=== PATIENT | female | born 1945 | race Caucasian/White ===

== ENCOUNTER 2019-06-09 00:25 | Emergency (ER) | payer MEDICARE ==
[2019-06-09] MEDS ORDERED: Labetalol IV* 5 MG/ML 20 ML VIAL ONE (02:29)
[2019-06-09] MEDS ORDERED: Meclizine TAB* 12.5 MG ONE (02:29)
[2019-06-09 04:15] LABS: ABS Basophils 0.1 10^3/ul (0-0.2); ABS Monocytes 0.4 10^3/ul (0-0.8); ABS Neutrophils 7.2 10^3/ul (1.5-7.7); Eosinophil % 0.3 %; Hematocrit 45 % (35-47); Hemoglobin 15.4 g/dL (12.0-16.0); Lymphocyte % 11.4 %; Mean Corpuscular HGB Conc 35 g/dL (31-36); Mean Corpuscular Hemoglobin 32 pg (27-31); Mean Corpuscular Volume 92 fL (80-97); Mean Platelet Volume 8.9 fL (7.4-10.4); Nucleated Red Blood Cells % 0.1; Platelet Count 225 10^3/uL (150-450); Red Blood Count 4.86 10^6 /uL (3.70-4.87); Red Cell Distribution Width 14 % (10-15); White Blood Count 8.7 10^3/uL (3.5-10.8)
[2019-06-09 04:16] LABS: Albumin 4.4 g/dL (3.2-5.2); Albumin/Globulin Ratio 1.5 (1-3); BUN/Creatinine Ratio 14.5 (8-20); Calcium 10.5 mg/dL (8.6-10.3); EGFR African American 90.8 (>60); Globulin 2.9 g/dL (2-4); Total Protein 7.3 g/dL (6.4-8.9)
[2019-06-09 04:17] LABS: Potassium 3.9 mmol/L (3.5-5.0)
--- NOTE | 2019-06-09 04:41 | ED ---
Dizziness - HPI Summary HPI Summary: Patient is a 73 y/o F presenting to ED with complaints of dizziness. She reports that Sx onset around 0130 06/08/19. Patient had gotten out of bed to go to the bathroom when Sx onset. She describes the dizziness at the time as room- spinning, noting that she had to hold onto the wall to steady herself. Patient eventually returned to her bed and states that she did not want to put her head on the pillow as this aggravated her Sx. Patient later managed to fall to sleep. Upon waking, she felt slightly better and went to a store. However, Sx worsened and she felt nauseous. Vomiting is denied. At present, patient reports some dizziness characterized as a light-headedness. She reports Hx of HTN but states that she was taken off her BP meds and does not take any medications at present. Home medications and allergies are reviewed. - History Of Current Complaint Chief Complaint: EDDizziness Stated Complaint: DIZZINESS PER PT Time Seen by Provider: 06/09/19 02:01 Hx Obtained From: Patient Onset/Duration: Still Present Timing: Hours Character: Room Spinning, Lightheaded, Dizzy Aggravating Factor(s): Nothing Alleviating Factor(s): Nothing Associated Signs And Symptoms: Positive: Nausea. Negative: Vomiting - Allergies/Home Medications Allergies/Adverse Reactions: Allergies Allergy/AdvReac Type Severity Reaction Status Date / Time codeine Allergy Vomiting Verified 06/09/19 00:37 PMH/Surg Hx/FS Hx/Imm Hx Cardiovascular History: Reports: Hx Hypertension Musculoskeletal History: Denies: Hx Scoliosis Neurological History: Denies: Hx Headaches, Other Neuro Impairments/Disorders - Cancer History Hx Chemotherapy: No Hx Radiation Therapy: No Infectious Disease History: No Infectious Disease History: Denies: Traveled Outside the [place] in Last 30 Days - Family History Known Family History: Negative: Cardiac Disease, Hypertension, Diabetes - Social History Alcohol Use: Rare Substance Use Type: Reports: None Smoking Status (MU): Never Smoked Tobacco Review of Systems Positive: Nausea. Negative: Vomiting Neurological: Other - positive - dizziness All Other Systems Reviewed And Are Negative: Yes Physical Exam - Summary Physical Exam Summary: VITAL SIGNS: Reviewed. GENERAL: Patient is a well-developed and nourished female who is lying comfortable in the stretcher. Patient is not in any acute respiratory distress. HEAD AND FACE: No signs of trauma. No ecchymosis, hematomas or skull depressions. No sinus tenderness. EYES: PERRLA, EOMI x 2, No injected conjunctiva, no nystagmus. EARS: Hearing grossly intact. Ear canals and tympanic membranes are within normal limits. MOUTH: Oropharynx within normal limits. NECK: Supple, trachea is midline, no adenopathy, no JVD, no carotid bruit, no c- spine tenderness, neck with full ROM CHEST: Symmetric, no tenderness at palpation LUNGS: Clear to auscultation bilaterally. No wheezing or crackles. CVS: Regular rate and rhythm, S1 and S2 present, no murmurs or gallops appreciated. ABDOMEN: Soft, non-tender. No signs of distention. No rebound no guarding, and no masses palpated. Bowel sounds are normal. EXTREMITIES: FROM in all major joints, no edema, no cyanosis or clubbing. NEURO: Alert and oriented x 3. No acute neurological deficits. Speech is normal and follows commands. SKIN: Dry and warm Triage Information Reviewed: Yes Vital Signs On Initial Exam: Initial Vitals Temp Pulse Resp BP Pulse Ox 97.9 F 84 18 181/102 96 06/09/19 00:32 06/09/19 00:32 06/09/19 00:32 06/09/19 00:32 06/09/19 00:32 Vital Signs Reviewed: Yes Diagnostics - Vital Signs Vital Signs Temp Pulse Resp BP Pulse Ox 06/09/19 03:36 15 131/73 06/09/19 03:30 14 139/80 06/09/19 03:25 13 147/78 06/09/19 03:20 15 139/80 06/09/19 03:15 14 148/76 06/09/19 03:10 11 163/82 06/09/19 03:05 16 148/88 06/09/19 03:00 13 149/81 06/09/19 02:58 15 142/76 06/09/19 02:55 14 165/80 06/09/19 02:50 12 187/109 06/09/19 02:23 78 14 200/105 95 06/09/19 02:22 71 12 96 06/09/19 01:22 75 14 205/105 96 06/09/19 00:32 97.9 F 84 18 181/102 96 - Laboratory Lab Results: Lab Results 06/09/19 06/09/19 Range/Units 02:30 02:30 WBC 8.7 (3.5-10.8) 10^3/uL RBC 4.86 (3.70-4.87) 10^6 /uL Hgb 15.4 (12.0-16.0) g/dL Hct 45 (35-47) % MCV 92 (80-97) fL MCH 32 H (27-31) pg MCHC 35 (31-36) g/dL RDW 14 (10-15) % Plt Count 225 (150-450) 10^3/uL MPV 8.9 (7.4-10.4) fL Neut % (Auto) 82.9 % Lymph % (Auto) 11.4 % Spink % (Auto) 4.2 % Eos % (Auto) 0.3 % Baso % (Auto) 1.2 % Absolute Neuts (auto) 7.2 (1.5-7.7) 10^3/ul Absolute Lymphs (auto) 1.0 (1.0-4.8) 10^3/ul Absolute Monos (auto) 0.4 (0-0.8) 10^3/ul Absolute Eos (auto) 0.0 (0-0.6) 10^3/ul Absolute Basos (auto) 0.1 (0-0.2) 10^3/ul Absolute Nucleated RBC 0.0 10^3/ul Nucleated RBC % 0.1 Sodium 139 (135-145) mmol/L Potassium 3.9 (3.5-5.0) mmol/L Chloride 109 (101-111) mmol/L Carbon Dioxide 24 (22-32) mmol/L Anion Gap 6 (2-11) mmol/L BUN 11 (6-24) mg/dL Creatinine 0.76 (0.51-0.95) mg/dL Est GFR ( Amer) 90.8 (>60) Est GFR (Non-Af Amer) 75.0 (>60) BUN/Creatinine Ratio 14.5 (8-20) Glucose 142 H (70-100) mg/dL Calcium 10.5 H (8.6-10.3) mg/dL Total Bilirubin 1.00 (0.2-1.0) mg/dL AST 40 H (13-39) U/L ALT 62 H (7-52) U/L Alkaline Phosphatase 109 H (34-104) U/L Total Protein 7.3 (6.4-8.9) g/dL Albumin 4.4 (3.2-5.2) g/dL Globulin 2.9 (2-4) g/dL Albumin/Globulin Ratio 1.5 (1-3) Result Diagrams: 06/09/19 02:30 06/09/19 02:30 Lab Statement: Any lab studies that have been ordered have been reviewed, and results considered in the medical decision making process. - CT brain ct CT Interpretation Completed By: Radiologist Summary of CT Findings: Brain CT showed no acute intracranial abnormaility. This report was reviewed by Dr. Coyle. - EKG 0223 Cardiac Rate: NL - rate of 73 BPM EKG Rhythm: Sinus Rhythm Summary of EKG Findings: EKG showed normal sinus rhythm with rate of 73 BPM, normal axis, normal interval, no ischemic changes. Re-Evaluation - Re-Evaluation First Eval Re-Evaluation Time: 04:58 Comment: Results of labs and tests were discussed with the patient, patient will be discharged to home with antivert and lisinopril prescription and PCP follow up. Dizzy Course/Dx - Course Course Of Treatment: Patient is a 73 y/o F presenting to ED with complaints of dizziness. She reports that Sx onset around 0130 06/08/19. At present, patient reports some dizziness characterized as a light-headedness. Nausea is endorsed, vomiting is denied. Physical exam is unremarkable. Labs showed MCH 32, glucose 142, calcium 10.5, AST 40, ALT 62, alk phos 109. EKG showed normal sinus rhythm with rate of 73 BPM, normal axis, normal interval, no ischemic changes. During ED course, patient received antivert 25 mg and trandate [address] showed no acute intracranial abnormaility. Results of labs and tests were discussed with the patient, patient will be discharged to home with antivert and lisinopril prescription and PCP follow up. - Diagnoses Provider Diagnoses: HTN (hypertension), Vertigo Discharge - Sign-Out/Discharge Documenting (check all that apply): Patient Departure - discharge Patient Received Moderate/Deep Sedation with Procedure: No - Discharge Plan Condition: Stable Disposition: HOME Prescriptions: Lisinopril TAB* [Prinivil TAB 10 MG*] 10 mg PO DAILY #30 tab Meclizine TAB* [Antivert 12.5 TAB*] 25 mg PO TID PRN #30 tab PRN Reason: Vertigo Patient Education Materials: Vertigo (ED), Hypertension (ED) Referrals: Tim Butt MD [Primary Care Provider] - 3 Days Additional Instructions: PLEASE RETURN TO ED FOR ANY NEW OR WORSENING SYMPTOMS. FOLLOW UP WITH YOUR PRIMARY CARE PHYSICIAN WITHIN THREE DAYS. - Billing Disposition and Condition Condition: STABLE Disposition: Home - Attestation Statements Document Initiated by Ziggy: Yes Documenting Scribe: ROCIO WOODRUFF Provider For Whom Ziggy is Documenting (Include Credential): ROBB COYLE MD Scribe Attestation: ROCIO Pelayo scribed for ROBB COYLE MD on 06/09/19 at 0614. Scribe Documentation Reviewed: Yes Provider Attestation: The documentation as recorded by the ROCIO muñoz accurately reflects the service I personally performed and the decisions made by me, ROBB COYLE MD Status of Scribe Document: Viewed
[2019-06-09 05:37] VITALS: BP 124/64
== END 2019-06-09 05:37 | disposition home or self-care (01) ==
LOC: ED 00:25
DX: R42 Dizziness and giddiness (principal); I10 Essential (primary) hypertension; Z88.5 Allergy status to narcotic agent
CPT/HCPCS: 36415; 70450; 80053; 85025; 93005; 99283; A9270-GY